=== PATIENT | female | born 1950 | race Caucasian/White ===

== ENCOUNTER 2019-09-13 13:12 | Emergency (ER) | payer MEDICARE ==
[~2019-09-13] VITALS: Ht 165.1 cm; Wt 83.5 kg
--- NOTE | 2019-09-13 14:01 | NUR ---
PT AMBULATORY TO ROOM AT THIS TIME. STEADY GAIT.
[2019-09-13 14:02] LABS: BASOPHILS # (AUTO) 0.04 x10^3/uL (0-0.1); BASOPHILS % (AUTO) 1 % (0-1); EOSINOPHILS # (AUTO) 0.11 x10^3/uL (0-0.4); EOSINOPHILS % (AUTO) 2 % (1-7); LYMPHOCYTES # (AUTO) 1.88 x10^3/uL (1-3.4); LYMPHOCYTES % (AUTO) 28 % (22-44); MD NO; MEAN CORPUSCULAR HEMOGLOBIN 30.2 pg (27.0-34.8); MEAN CORPUSCULAR HGB CONC 33.3 g/dL (32.4-35.8); MEAN CORPUSCULAR VOLUME 90.5 fL (80-100); MONOCYTES % (AUTO) 6 % (2-9); NEUTROPHILS % (AUTO) 64 % (42-75); PLATELET COUNT 235 x10^3/uL (130-400); RED BLOOD COUNT 4.84 x10^6/uL (3.82-5.3); RED CELL DISTRIBUTION WIDTH 12.6 % (9.6-15.2)
[2019-09-13 14:05] LABS: ALANINE AMINOTRANSFERASE 20 U/L (12-78); ALBUMIN 3.8 g/dL (3.4-5.0); ANION GAP 5 mmol/L (5-15); CALCIUM 9.7 mg/dL (8.5-10.1); CHLORIDE 110 mmol/L (98-107)
[2019-09-13 14:10] LABS: ALKALINE PHOSPHATASE 102 U/L (45-117); BILIRUBIN,TOTAL 0.6 mg/dL (0.2-1.0); CREATININE 0.86 mg/dL (0.55-1.02); TOTAL PROTEIN 7.4 g/dL (6.4-8.2); TROPONIN I < 0.015 ng/mL (0.000-0.045)
[2019-09-13] MEDS ORDERED: MECLIZINE CHEWABLE 25 MG TAB ONE (14:29)
--- NOTE | 2019-09-13 14:39 | NUR ---
Break RN: First contact w/ pt. Pt reports sudden onset of dizziness this morning w/ associated nausea vomitting x 4. MD Bowden has been at bedside to assess pt, pt to recieve CT & be rechecked, medication administered per OCT. WCTM.
[2019-09-13 14:54] VITALS: BP 138/82
[2019-09-13] MEDS ORDERED: MECLIZINE CHEWABLE 25 MG TAB PO ONE (15:00)
--- NOTE | 2019-09-13 15:24 | NUR ---
PT TO CT.
--- NOTE | 2019-09-13 15:36 | NUR ---
PT BACK FROM CT.
--- NOTE | 2019-09-13 15:50 | NUR ---
ALL RESULTS BACK AT THIS TIME, CHART UP FOR RECHECK.
--- NOTE | 2019-09-13 16:22 | NUR ---
Patient/Caregiver given discharge instructions and they have confirmed that they understand the instructions. Patient ambulatory with steady gait.
== END 2019-09-13 16:51 | disposition home or self-care (01) ==
LOC: ED 16:00
DX: R42 Dizziness and giddiness (principal); R51 Headache
CPT/HCPCS: 36415; 70450; 80053; 84484; 85025; 93005; 99285